=== PATIENT | female | born 1980 | race Caucasian/White ===

== ENCOUNTER 2016-07-20 17:01 | Emergency (ER) | payer OTHER ==
[2016-07-20] MEDS ORDERED: METO-269 PO (17:29)
[2016-07-20] MEDS ORDERED: GABA-586 PO (17:29)
[2016-07-20] MEDS ORDERED: SERT100T PO (17:30)
[2016-07-20] MEDS ORDERED: ALPR0.25 PO (17:31)
[2016-07-20] MEDS ORDERED: PRED20TA PO (17:31)
[2016-07-20 18:38] LABS: BASO # 0.1 x10^3/uL (0.0-0.2); BASO % 0 % (0-3); EOS % 2 % (0-3); HEMATOCRIT 44.8 % (36.0-47.0); HEMOGLOBIN 14.4 g/dL (12.0-15.5); LYMPH # 5.7 x10^3/uL (1.0-4.8); LYMPH % 21 % (24-48); MEAN CORPUSCULAR HEMOGLOBIN 29 pg (25-35); MEAN CORPUSCULAR HGB CONC 32 g/dL (31-37); MEAN CORPUSCULAR VOLUME 91 fL (79-100); MONO % 6 % (0-9); NEUT % 70 % (31-73); PLATELET COUNT 299 x10^3/uL (140-400); RED BLOOD COUNT 4.91 x10^6/uL (3.50-5.40); RED CELL DISTRIBUTION WIDTH 14.4 % (11.5-14.5); WHITE BLOOD COUNT 26.4 x10^3/uL (4.0-11.0)
[2016-07-20 18:57] LABS: CALCIUM 8.6 mg/dL (8.5-10.1); CREATININE 0.8 mg/dL (0.6-1.0); GFR 81.2; POTASSIUM 3.2 mmol/L (3.5-5.1)
[2016-07-20] MEDS ORDERED: LORAZEPAM 2 MG/ML VIAL IV ONE (19:00)
[2016-07-20] MEDS ORDERED: ASPIRIN 81 MG TAB.CHEW PO ONE (19:00)
[2016-07-20] MEDS ORDERED: IV NORMAL SALINE 1000ML BAG 1,000 ML IV SCH (19:00)
[2016-07-20 19:03] LABS: ALBUMIN 3.5 g/dL (3.4-5.0); DIRECT BILIRUBIN 0.1 mg/dL (0.0-0.2); MAGNESIUM 2.1 mg/dL (1.8-2.4); TOTAL BILIRUBIN 0.3 mg/dL (0.2-1.0); TOTAL PROTEIN 7.7 g/dL (6.4-8.2)
[2016-07-20 19:09] LABS: % EOS 3 % (0-5)
[2016-07-20 19:10] LABS: PLT ESTIMATE ADEQUATE (ADEQUATE); TOXIC GRANULATION MOD
[2016-07-20 19:12] LABS: CKMB INDEX 2.2 % (0-4)
[2016-07-20 19:15] LABS: BILIRUBIN,URINE NEGATIVE (NEG); GLUCOSE,URINE NEGATIVE (NEG); NITRITE,URINE NEGATIVE (NEG); PROTEIN,URINE NEGATIVE (NEG-TRACE)
[2016-07-20 19:17] LABS: BARBITURATES NEG (NEG); BENZODIAZEPINES NEG (NEG); CANNABINOIDS NEG (NEG); COCAINE NEG (NEG); METHADONE NEG (NEG); OPIATES NEG (NEG); PHENCYCLIDINE NEG (NEG)
[2016-07-20 19:22] LABS: ETHANOL, URINE NEG (NEG)
[2016-07-20 19:34] LABS: BACTERIA,URINE FEW /HPF (0-FEW); RBC,URINE 0 /HPF (0-2); SQUAMOUS EPITHELIAL CELL,UR OCC /LPF; WBC,URINE OCC /HPF (0-4)
--- NOTE | 2016-07-20 20:36 | PHYS DOC ---
Past Medical History Past Medical History: Asthma, Migraines, Other Additional Past Medical Histor: IBS, endometreosis Past Surgical History: Hysterectomy Additional Past Surgical Histo: removal of extra ovary, several laparotomies, Alcohol Use: Rarely Drug Use: None Adult General Chief Complaint Chief Complaint: SHORTNESS OF BREATH HPI HPI Patient is a 36 year old female who presents with complaint of intermittent chest tightness. Patient states that she has had symptoms over the past month of chest fluttering and anxiety symptoms. The patient states that she was seen by her primary doctor and was started on Xanax earlier this month for treatment. Patient states that she has had difficulty with anxiety as she recently lost her father a year ago and has started to have anxiety and panic attacks since the holidays. The patient states that she does not have any known significant past medical history. Patient states that she takes Xanax at nighttime which has improved her sleep, however she has not had good control of symptoms during the daytime. The patient states that she has had intermittent chest pain which radiates towards her back. Patient states that the pain mildly worsens with deep inspiration. Patient also states that she feels fluttering at times in her chest. The patient denies any associated nausea, diaphoresis, or shortness of breath. Patient also states that she has had intermittent numbness in her hands and face. The patient states that she does maintain a significant amount of stress during the daytime at this time. Patient denies any history of tobacco use or drugs. The patient does have family history of myocardial infarction. Patient currently rates her pain as 1 out of 10. Review of Systems Review of Systems Constitutional: Denies fever or chills [] Eyes: Denies change in visual acuity, redness, or eye pain [] HENT: Denies nasal congestion or sore throat [] Respiratory: Denies cough or shortness of breath [] Cardiovascular: Chest pain, "chest fluttering," denies edema [] GI: Denies abdominal pain, nausea, vomiting, bloody stools or diarrhea [] : Denies dysuria or hematuria [] Musculoskeletal: Denies back pain or joint pain [] Integument: Denies rash or skin lesions [] Neurologic: Denies headache, focal weakness or sensory changes [] Endocrine: Denies polyuria or polydipsia [] Current Medications Current Medications Current Medications Medications (Trade) Dose Ordered Sig/Jimmy Start Time Stop Time Status Last Admin Dose Admin Aspirin (Children'S Aspirin) 324 mg 1X ONCE 07/20/16 19:00 07/20/16 19:01 DC 07/20/16 18:49 324 MG Lorazepam 1 mg 1 mg 1X ONCE 07/20/16 19:00 07/20/16 19:01 DC 07/20/16 18:49 1 MG Sodium Chloride (Iv Sodium Chloride 0.9% 1000ml Bag) 1,000 ml @ 1,000 mls/hr Q1H 07/20/16 19:00 07/20/16 19:59 DC 07/20/16 18:49 1,000 MLS/HR Allergies Allergies Allergies Coded Allergies Type Severity Reaction Last Updated Verified Penicillins Allergy Intermediate 07/20/16 Yes Physical Exam Physical Exam Constitutional: Alert, afebrile, appears anxious. [] HENT: Normocephalic, atraumatic, bilateral external ears normal, oropharynx moist, no oral exudates, nose normal. [] Eyes: PERRLA, EOMI, conjunctiva normal, no discharge. [] Neck: Normal range of motion, no tenderness, supple, no stridor. [] Cardiovascular:Heart rate regular rhythm, no murmur [] Lungs & Thorax: Bilateral breath sounds clear to auscultation [] Abdomen: Bowel sounds normal, soft, no tenderness, no masses, no pulsatile masses. [] Skin: Warm, dry, no erythema, no rash. [] Back: No tenderness, no CVA tenderness. [] Extremities: No tenderness, no cyanosis, no clubbing, ROM intact, no edema. [] Neurologic: Alert and oriented X 3, normal motor function, normal sensory function, no focal deficits noted. [] Current Patient Data Vital Signs Vital Signs Date Time Temp Pulse Resp B/P Pulse Ox O2 Delivery O2 Flow Rate FiO2 07/20/16 20:57 88 20 117/77 100 Room Air Lab Values Laboratory Tests Test 07/20/16 17:24 07/20/16 18:35 White Blood Count 26.4x10^3/uL (4.0-11.0) H Red Blood Count 4.91x10^6/uL (3.50-5.40) Hemoglobin 14.4g/dL (12.0-15.5) Hematocrit 44.8% (36.0-47.0) Mean Corpuscular Volume 91fL (79-100) Mean Corpuscular Hemoglobin 29pg (25-35) Mean Corpuscular Hemoglobin Concent 32g/dL (31-37) Red Cell Distribution Width 14.4% (11.5-14.5) Platelet Count 299x10^3/uL (140-400) Neutrophils (%) (Auto) 70% (31-73) Lymphocytes (%) (Auto) 21% (24-48) L Monocytes (%) (Auto) 6% (0-9) Eosinophils (%) (Auto) 2% (0-3) Basophils (%) (Auto) 0% (0-3) Neutrophils # (Auto) 18.5x10^3uL (1.8-7.7) H Lymphocytes # (Auto) 5.7x10^3/uL (1.0-4.8) H Monocytes # (Auto) 1.6x10^3/uL (0.0-1.1) H Eosinophils # (Auto) 0.5x10^3/uL (0.0-0.7) Basophils # (Auto) 0.1x10^3/uL (0.0-0.2) Segmented Neutrophils % 67% (35-66) H Lymphocytes % 22% (24-48) L Monocytes % 7% (0-10) Eosinophils % 3% (0-5) Myelocytes % 1% (0-0) H Toxic Granulation Mod Platelet Estimate Adequate (ADEQUATE) D-Dimer (Radha) 0.27ug/mlFEU (0.00-0.50) Sodium Level 142mmol/L (136-145) Potassium Level 3.2mmol/L (3.5-5.1) L Chloride Level 106mmol/L (98-107) Carbon Dioxide Level 27mmol/L (21-32) Anion Gap 9 (6-14) Blood Urea Nitrogen 11mg/dL (7-20) Creatinine 0.8mg/dL (0.6-1.0) Estimated GFR (Cockcroft-Gault) 81.2 Glucose Level 91mg/dL (70-99) Calcium Level 8.6mg/dL (8.5-10.1) Magnesium Level 2.1mg/dL (1.8-2.4) Total Bilirubin 0.3mg/dL (0.2-1.0) Direct Bilirubin 0.1mg/dL (0.0-0.2) Aspartate Amino Transferase (AST) 11U/L (15-37) L Alanine Aminotransferase (ALT) 24U/L (14-59) Alkaline Phosphatase 98U/L (46-116) Creatine Kinase 46U/L (26-192) Creatine Kinase MB (Mass) 1.0ng/mL (0.0-3.6) Creatine Kinase MB Relative Index 2.2% (0-4) Troponin I Quantitative < 0.017ng/mL (0.000-0.055) Total Protein 7.7g/dL (6.4-8.2) Albumin 3.5g/dL (3.4-5.0) Urine Color Yellow Urine Clarity Clear Urine pH 7.0 Urine Specific [place] 1.015 Urine Protein Negativemg/dL (NEG-TRACE) Urine Glucose (UA) Negativemg/dL (NEG) Urine Ketones (Stick) Negativemg/dL (NEG) Urine Blood Negative (NEG) Urine Nitrite Negative (NEG) Urine Bilirubin Negative (NEG) Urine Urobilinogen Dipstick 1.0mg/dL (0.2 mg/dL) Urine Leukocyte Esterase Negative (NEG) Urine RBC 0/HPF (0-2) Urine WBC Occ/HPF (0-4) Urine Squamous Epithelial Cells Occ/LPF Urine Bacteria Few/HPF (0-FEW) Urine Mucus Slight/LPF Urine Opiates Screen Neg (NEG) Urine Methadone Screen Neg (NEG) Urine Barbiturates Neg (NEG) Urine Phencyclidine Screen Neg (NEG) Urine Amphetamine/Methamphetamine Neg (NEG) Urine Benzodiazepines Screen Neg (NEG) Urine Cocaine Screen Neg (NEG) Urine Cannabinoids Screen Neg (NEG) Urine Ethyl Alcohol Neg (NEG) Laboratory Tests 07/20/16 17:24 Laboratory Tests 07/20/16 17:24 EKG EKG Interpreted by me: Heart rate 88, sinus rhythm, normal intervals, normal axis, no acute ST/T-wave abnormalities present [] Radiology/Procedures Radiology/Procedures One view AP chest x-ray interpreted by me: No infiltrates, no effusions, normal cardiac silhouette [] Course & Med Decision Making Course & Med Decision Making Pertinent Labs and Imaging studies reviewed. (See chart for details) Patient was given aspirin, IV fluids, and lorazepam in the emergency department. Patient does not have any chest pain symptoms at this time. The patient's lab work was unremarkable with the exception of an elevated white blood cell count. On further questioning, the patient did admit that she is currently on a prednisone taper as she is being treated for migraine headaches by her primary physician. This can definitely account for the patient's leukocytosis. I did contact Dr. Schroeder of hematology and discuss the case with him. He concurred that the leukocytosis is likely due to prednisone, and he recommended that the patient follow-up with her primary physician after she has concluded at this taper for repeat lab work. He stated that the patient continues to display leukocytosis that he would follow-up with the patient for referral from her primary physician. I suspect that the patient's symptoms are due to decompensated anxiety and stress. I did recommend close follow-up with primary physician and return to the emergency department for any worsening symptoms. Patient voiced understanding and in agreement with treatment plan. Dragon Disclaimer Dragon Disclaimer This electronic medical record was generated, in whole or in part, using a voice recognition dictation system. Departure Departure Impression: Primary Impression: Atypical chest pain Additional Impression: Leukocytosis Disposition: HOME, SELF-CARE Condition: IMPROVED Referrals: LUCERO MONTALVO MD (PCP) Patient Instructions: Chest Pain (Nonspecific) Additional Instructions: Your white blood cell count was found to be high today at 26. This is thought to be a result of your prednisone prescription that you been taking and this will likely come down after you discontinue use. Your chest pain symptoms do not show any evidence that you have a heart problem. It is recommended that you follow-up with your primary doctor in one week as your blood work will need to be rechecked. Return to the emergency department for any worsening symptoms. Problem Qualifiers Additional Impression: Leukocytosis Leukocytosis type: unspecified Qualified Code: D72.829 - Elevated white blood cell count, unspecified OVI LEE MD Jul 20, 2016 20:36
[2016-07-20 20:57] VITALS: BP 117/77
--- NOTE | 2016-07-21 06:54 | EKG ---
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
--- NOTE | 2016-07-21 08:46 | RAD ---
Indication: Chest pain. Time of exam 1847 hours. FINDINGS: The heart size is normal. The lungs are clear. No pleural effusion or pneumothorax is identified. The pulmonary vascularity is normal. IMPRESSION: No acute abnormality detected.
== END 2016-07-20 21:00 | disposition home or self-care (01) ==
LOC: ER 17:01
DX: R07.89 Other chest pain (principal); D72.829 Elevated white blood cell count, unspecified; G43.909 Migraine, unspecified, not intractable, without status migrainosus; J45.909 Unspecified asthma, uncomplicated; K58.9 Irritable bowel syndrome, unspecified; Z88.0 Allergy status to penicillin
CPT/HCPCS: 36415; 71010; 80048; 80076; 81001; 82553; 83735; 84484; 85007; 85027; 85379; 93005; 96361; 96374; 99285; G0481; J2060; J7030; 90471; 96372; 99284-25

== ENCOUNTER 2017-07-18 03:45 | Emergency (ER) | payer OTHER ==
[2017-07-18 04:27] LABS: ADD MAN DIFF? NO
[2017-07-18 04:30] LABS: BASO # 0.1 x10^3/uL (0.0-0.2); BASO % 0 % (0-3); EOS # 0.9 x10^3/uL (0.0-0.7); EOS % 6 % (0-3); HEMATOCRIT 45.7 % (36.0-47.0); HEMOGLOBIN 15.4 g/dL (12.0-15.5); LYMPH # 4.1 x10^3/uL (1.0-4.8); LYMPH % 27 % (24-48); MEAN CORPUSCULAR HEMOGLOBIN 30 pg (25-35); MEAN CORPUSCULAR HGB CONC 34 g/dL (31-37); MEAN CORPUSCULAR VOLUME 90 fL (79-100); MONO # 1.4 x10^3/uL (0.0-1.1); MONO % 9 % (0-9); NEUT # 8.8 x10^3uL (1.8-7.7); NEUT % 58 % (31-73); PLATELET COUNT 294 x10^3/uL (140-400); RED BLOOD COUNT 5.11 x10^6/uL (3.50-5.40); RED CELL DISTRIBUTION WIDTH 13.8 % (11.5-14.5); WHITE BLOOD COUNT 15.3 x10^3/uL (4.0-11.0)
[2017-07-18 05:07] LABS: ANION GAP 12 (6-14); BLOOD UREA NITROGEN 10 mg/dL (7-20); CALCIUM 8.6 mg/dL (8.5-10.1); CARBON DIOXIDE 24 mmol/L (21-32); CHLORIDE 103 mmol/L (98-107); CREATININE 0.7 mg/dL (0.6-1.0); GFR 94.2; GLUCOSE 115 mg/dL (70-99); POTASSIUM 3.6 mmol/L (3.5-5.1); SODIUM 139 mmol/L (136-145)
[2017-07-18 05:11] LABS: INR 1.2 (0.8-1.1); PARTIAL THROMBOPLASTIN TIME 35 SEC (24-38); PROTHROMBIN TIME PATIENT 14.1 SEC (11.7-14.0)
[2017-07-18 05:14] LABS: ALBUMIN 3.5 g/dL (3.4-5.0); ALK PHOS 109 U/L (46-116); ALT (SGPT) 21 U/L (14-59); AST (SGOT) 19 U/L (15-37); DIRECT BILIRUBIN 0.1 mg/dL (0.0-0.2); LIPASE 113 U/L (73-393); TOTAL BILIRUBIN 0.2 mg/dL (0.2-1.0); TOTAL PROTEIN 7.6 g/dL (6.4-8.2)
[2017-07-18 05:15] LABS: D-DIMER 0.29 ug/mlFEU (0.00-0.50)
[2017-07-18 05:23] LABS: TROPONINI < 0.017 ng/mL (0.000-0.055)
== END 2017-07-18 06:38 | disposition home or self-care (01) ==
LOC: ER 03:45
DX: R05 Cough (principal); R07.89 Other chest pain; M79.1 Myalgia; J45.909 Unspecified asthma, uncomplicated; K58.9 Irritable bowel syndrome, unspecified; G43.909 Migraine, unspecified, not intractable, without status migrainosus; Z88.0 Allergy status to penicillin
CPT/HCPCS: 36415; 71045; 80048; 80076; 83690; 84484; 85025; 85379; 85610; 85730; 93005; 99285-25